=== PATIENT | male | born 1995 | race Caucasian/White ===

== ENCOUNTER 2017-08-07 00:47 | Emergency (ER) | payer SELFPAY ==
[2017-08-07] MEDS: SOD CHLORIDE 0.9% 1,000 ML IV (01:07)
[2017-08-07] MEDS: LORAZEPAM 2 MG INJ IV ×2 (01:07→02:11)
[2017-08-07] MEDS: KETOROLAC 15 MG INJ IV (01:07)
[2017-08-07] MEDS: DIPHENHYDRAMINE 50 MG INJ IV (01:08)
[2017-08-07 01:13] LABS: ADD MAN DIFF? NO
[2017-08-07 01:15] LABS: WHITE BLOOD COUNT 9.3 10^3/ul (4.8-10.8)
[2017-08-07 01:15] LABS: ABNORMAL IP MESSAGE 1; BASOPHIL # 0.1 10^3/ul (0.0-0.1); BASOPHILS % 1.1 % (0.0-2.0); EOSINOPHILS # 0.2 10^3/ul (0.0-0.5); EOSINOPHILS % 1.8 % (0.0-7.0); HEMATOCRIT 41.6 % (42.0-52.0); LYMPHOCYTES # 5.4 10^3/ul (0.8-2.9); LYMPHOCYTES % 58.2 % (15.0-51.0); MEAN CORPUSCULAR HEMOGLOBIN 34.4 pg (29.0-33.0); MEAN CORPUSCULAR HGB CONC 36.1 g/dl (32.0-37.0); MEAN CORPUSCULAR VOLUME 95.4 fl (82.0-101.0); MEAN PLATELET VOLUME 9.7 fl (7.4-10.4); MONOCYTE # 0.6 10^3/ul (0.3-0.9); MONOCYTES % 6.5 % (0.0-11.0); NEUTROPHILS % 32.2 % (39.0-77.0); PLATELET COUNT 243 10^3/UL (140-415); POSITIVE DIFF @See below; RED BLOOD COUNT 4.36 10^6/ul (4.70-6.10); RED CELL DISTRIBUTION WIDTH 11.2 % (11.5-14.5)
[2017-08-07] MEDS: HALOPERIDOL 5 MG INJ IV (01:34)
[2017-08-07 01:40] LABS: ANION GAP 25 (8-16); BLOOD UREA NITROGEN 10 mg/dl (7-20); CALCIUM 9.1 mg/dl (8.4-10.2); CARBON DIOXIDE 24 mmol/L (21-31); CHLORIDE 95 mmol/L (97-110); GLUCOSE 126 mg/dl (70-220); POTASSIUM 3.6 mmol/L (3.5-5.1); SODIUM 140 mmol/L (135-144)
== END 2017-08-07 12:57 | disposition home or self-care (01) ==
LOC: E/R 00:47
DX: H10.213 Acute toxic conjunctivitis, bilateral (principal); R40.2232 Coma scale, best verbal response, inappropriate words, at arrival to emergency department; T65.91XA Toxic effect of unspecified substance, accidental (unintentional), initial encounter; F10.120 Alcohol abuse with intoxication, uncomplicated; R40.2352 Coma scale, best motor response, localizes pain, at arrival to emergency department; R40.2142 Coma scale, eyes open, spontaneous, at arrival to emergency department
CPT/HCPCS: 36415; 80048; 80307; 85025; 96361; 96374; 96375; 96376; 99284-25